=== PATIENT | female | born 1975 | race Caucasian/White ===

== ENCOUNTER 2020-12-27 11:59 | Emergency (ER) | payer MEDICAID ==
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
[2020-12-27] MEDS ORDERED: LORazepam 0.5 MG Tab PO ONE (13:05)
[2020-12-27] MEDS ORDERED: traMADol 50 MG Tab PO ONE (13:05)
== END 2020-12-27 13:57 | disposition home or self-care (01) ==
LOC: JD.ED 11:59
DX: M67.432 Ganglion, left wrist (principal); F41.9 Anxiety disorder, unspecified; Z88.5 Allergy status to narcotic agent; Z88.2 Allergy status to sulfonamides
CPT/HCPCS: 99283; A9270

== ENCOUNTER 2021-01-31 16:17 | Emergency (ER) | payer MEDICAID ==
[2021-01-31] MEDS ORDERED: LORazepam 2 MG/ML SDV IM ONE (16:25)
[2021-01-31] MEDS ORDERED: diphenhydrAMINE 50 MG/ML SDV IM ONE (16:25)
[2021-01-31] MEDS ORDERED: Haloperidol Lactate 5 MG/ML SDV IM ONE (16:25)
[2021-01-31] MEDS ORDERED: Lidocaine 1% 10 ML MDV INJECT ONE (16:32)
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
[2021-01-31 17:39] LABS: ACETAMINOPHEN 0 ug/mL (10-30)
== END 2021-02-01 01:27 ==
LOC: JD.ED 16:17
DX: S11.91XA Laceration without foreign body of unspecified part of neck, initial encounter (principal); Z88.2 Allergy status to sulfonamides; Z88.5 Allergy status to narcotic agent; Z20.822 Contact with and (suspected) exposure to COVID-19; X78.8XXA Intentional self-harm by other sharp object, initial encounter
CPT/HCPCS: 12002; 36415; 80053; 80143; 80179; 80306; 80307; 81025; 84443; 85025; 87635; 96372; 99285; J1200; J1630; J2060; U0002

== ENCOUNTER 2021-02-22 17:08 | Emergency (ER) | payer MEDICAID, OTHER ==
[2021-02-22] MEDS ORDERED: Ketorolac 60 MG/2 ML SDV IM ONE (17:30)
[2021-02-22] MEDS ORDERED: Metoclopramide 10 MG/2 ML SDV IM ONE (17:30)
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
[2021-02-22] MEDS ORDERED: Sodium Chloride 0.9% 1,000 ML IV ONE (17:52)
[2021-02-22] MEDS: Sodium Chloride 0.9% 10 ML Syringe FLUSH PRN ×2 (18:06→19:17)
[2021-02-22] MEDS ORDERED: Iopamidol 612 MG/ML 100 ML Bottle IVPUSH ONE (19:07)
[2021-02-22] MEDS ORDERED: Sodium Chloride 0.9% 10 ML SDV FLUSH ONE (19:07)
[2021-02-22] MEDS ORDERED: Diatrizoate Meglumine/Diatrizoate Sodium 37% 120 ML Bottle PO ONE (19:07)
[2021-02-22] MEDS ORDERED: Magnesium Citrate Solution 296 ML Bottle PO ONE (20:25)
--- NOTE | 2021-02-23 07:54 | CR ---
Abdomen: Supine and upright views of the abdomen were obtained. Comparison: No prior abdominal imaging is available. Fluid is seen within the colon. No bowel dilatation is appreciated. No free air is seen. Bony structures are within normal limits. No discrete soft tissue abnormality is appreciated. Impression: 1. Fluid within the colon with no bowel dilatation. Please correlate if patient has symptoms of diarrhea. 2. Two-view abdominal study is otherwise unremarkable. Diagnostic code #2
--- NOTE | 2021-02-23 07:58 | CT ---
CT abdomen and pelvis Technique: Multiple axial sections were obtained from above the dome of the diaphragm inferiorly through the pubic symphysis. Intravenous and oral contrast were utilized. Delayed images were also obtained through the bladder at two different times. Reconstructed coronal and sagittal images were obtained. Comparison: Prior abdominal x-ray performed earlier on the same day (5:29 PM). Findings: Visualized lung bases show nothing acute. Liver contains no focal parenchymal abnormality. Gallbladder contains no calcified gallstones. Spleen size is normal. Adrenal glands show no nodule. Pancreas shows no discrete abnormality. Kidneys show symmetric contrast enhancement. Possible minimal calcification within the right kidney suspicious for nonobstructing calculus. No ureteral dilatation or ureteral stone is seen. Delayed images show contrast within the distal ureters and within the bladder. Abdominal aorta shows no aneurysm. No retroperitoneal adenopathy or mesenteric abnormalities are seen. Appendix is seen which is normal in size. No pelvic mass or adenopathy is seen. Diffuse fluid is seen within the colon. No bowel dilatation is seen. Cystic area is noted within the left side of the vagina measuring 2.5 cm which is believed to be benign. No inflammatory change or free fluid is seen. Bone window settings were reviewed which show degenerative change mostly within the thoracic spine. No acute osseous abnormality is appreciated. Impression: 1. Diffuse fluid throughout the colon which is very suspicious for diarrhea. No bowel dilatation is seen. 2. Incidental cyst within the lower left vagina. Small nonobstructing calculus within the right kidney. 3. Nothing acute is otherwise seen. Diagnostic code #3 I agree with preliminary report from [facility], finalized on 02/22/21, 8:42 PM CDT, code 1
== END 2021-02-22 20:34 | disposition home or self-care (01) ==
LOC: JD.ED 17:08
DX: K59.03 Drug induced constipation (principal); T50.995A Adverse effect of other drugs, medicaments and biological substances, initial encounter; J44.9 Chronic obstructive pulmonary disease, unspecified; E66.9 Obesity, unspecified; Z68.30 Body mass index [BMI] 30.0-30.9, adult; Z88.5 Allergy status to narcotic agent; Z88.2 Allergy status to sulfonamides; Z72.0 Tobacco use
CPT/HCPCS: 36415; 74019; 74177; 80053; 83605; 83690; 85025; 86140; 96372; 99284; A9270; J1885; J2765; J7030; Q9963; Q9967

== ENCOUNTER 2022-01-28 08:33 | Emergency (ER) | payer MEDICAID ==
[2022-01-28] MEDS ORDERED: LORazepam 1 MG Tab PO ONE (09:19)
== END 2022-01-28 10:03 | disposition home or self-care (01) ==
LOC: JD.ED 08:33
DX: S93.401A Sprain of unspecified ligament of right ankle, initial encounter (principal); F41.9 Anxiety disorder, unspecified; M54.2 Cervicalgia; S60.229A Contusion of unspecified hand, initial encounter; S80.10XA Contusion of unspecified lower leg, initial encounter; J44.9 Chronic obstructive pulmonary disease, unspecified; E66.9 Obesity, unspecified; Z88.5 Allergy status to narcotic agent; Z88.2 Allergy status to sulfonamides; Z68.29 Body mass index [BMI] 29.0-29.9, adult
CPT/HCPCS: 80306; 99283; A9270

== ENCOUNTER 2022-06-07 04:38 | Emergency (ER) | payer SELFPAY ==
[2022-06-07] MEDS ORDERED: LORazepam 2 MG/ML SDV IM ONE (04:54)
[2022-06-07] MEDS ORDERED: Midazolam 1 MG/ML 5 ML SDV IM STA (05:15)
[2022-06-07] MEDS ORDERED: LORazepam 2 MG/ML SDV IM PRN (06:00)
[2022-06-07] MEDS: LORazepam 2 MG/ML SDV IM PRN ×2 (06:21→06:35)
== END 2022-06-07 11:00 | disposition home or self-care (01) ==
LOC: JD.ED 04:38
DX: F15.129 Other stimulant abuse with intoxication, unspecified (principal); J44.9 Chronic obstructive pulmonary disease, unspecified; Z88.5 Allergy status to narcotic agent; Z88.2 Allergy status to sulfonamides; Z79.899 Other long term (current) drug therapy
CPT/HCPCS: 36415; 80053; 80143; 80179; 80307; 82947; 93005; 96372; 99282; J2060; 93010; 99284

== ENCOUNTER 2023-05-08 09:41 | Emergency (ER) | payer MEDICAID ==
[2023-05-08] MEDS ORDERED: Ketorolac 30 MG/ML SDV IVPUSH ONE (10:25)
[2023-05-08] MEDS ORDERED: guaiFENesin/Dextromethorphan 100-10 MG/5 ML Soln 5 ML Cup PO ONE (10:26)
[2023-05-08 11:36] LABS: CORONAVIRUS COVID-19 NAA NEGATIVE (NEGATIVE); INFLUENZA A NAA NEGATIVE (NEGATIVE); RESPIRATORY SYNCYTIAL VIR NAA NEGATIVE (NEGATIVE)
== END 2023-05-08 10:56 | disposition left against medical advice (07) ==
LOC: JD.ED 09:41
DX: B34.9 Viral infection, unspecified (principal); M79.661 Pain in right lower leg; M79.662 Pain in left lower leg; G89.4 Chronic pain syndrome; Z72.89 Other problems related to lifestyle; J44.9 Chronic obstructive pulmonary disease, unspecified; E66.9 Obesity, unspecified; F17.210 Nicotine dependence, cigarettes, uncomplicated; Z20.822 Contact with and (suspected) exposure to COVID-19; Z88.5 Allergy status to narcotic agent; Z88.2 Allergy status to sulfonamides; Z68.34 Body mass index [BMI] 34.0-34.9, adult
CPT/HCPCS: 0241U; 87651; 99283; A9270